=== PATIENT | male | born 1975 | race Two or more races ===

== ENCOUNTER 2024-09-25 12:06 | Outpatient (CLI) | payer OTHER | END 2024-09-25 12:08 | disposition home or self-care (01) | LOC: SONOGRAMA 12:06 | PROVIDERS: ATTEND Pathology Anatomic Pathology | DX: C77.0 Secondary and unspecified malignant neoplasm of lymph nodes of head, face and neck (principal); R59.0 Localized enlarged lymph nodes ==

== ENCOUNTER 2025-06-01 07:37 | Outpatient (CLI) | payer OTHER | END 2025-06-01 07:39 | disposition home or self-care (01) | LOC: SONOGRAMA 07:37 | PROVIDERS: ATTEND Pathology Anatomic Pathology | DX: D34 Benign neoplasm of thyroid gland (principal); E07.89 Other specified disorders of thyroid; R59.0 Localized enlarged lymph nodes ==